=== PATIENT | female | born 1940 | race Caucasian/White ===

== ENCOUNTER 2023-08-24 13:38 | Inpatient (IN) | payer OTHER, SELFPAY ==
[2023-08-24 07:56] VITALS: BP 165/92
[2023-08-24 09:13] VITALS: BMI 32.8
--- NOTE | 2023-08-24 09:15 | ED.GENMED ---
History of Present Illness
General
Chief Complaint: Change in Mental Status
Source: patient and family
Exam Limitations: none
Time Seen by Provider: 08/24/23 08:55
Nursing documentation reviewed up to this point in time: agreed with
History of Present Illness
History of Present Illness:
Patient presents to ED for evaluation secondary to intermittent episodes of confusion, lasting seconds to minutes, as noted by her daughter who lives with the patient. Patient herself, however, has no complaints. Denies headache. Denies
dizziness. Denies recent illness. Denies recent change in medications or diet. Denies difficulty with speaking. Denies difficulty with ambulation. Denies recent illness.
Review of Systems
Review of Systems
Allergies reviewed?: Yes
All Other Systems: ROS reviewed and negative except as documented in HPI and ROS
Constitutional: Reports no symptoms
Respiratory: Reports no symptoms
Cardiac: Reports no symptoms
ABD/GI: Reports no symptoms
Musculoskeletal: Reports no symptoms
Skin: Reports no symptoms
Neurological: Reports no symptoms
Phy Exam
Physical Exam
Physical Exam:
Physical Exam
General: no apparent distress, not acutely ill. afebrile
Head: nc/at. eomi
Neck: supple. normal range of motion.
Heart: s1/s2 regular rate and rhythm, no murmur. equal radial pulses.
Lungs: no acute respiratory distress. clear bilaterally
Abdomen: normal bowel sounds. not tender.
Neuro: alert and oriented. no focal neurological deficits. normal speech. normal gait.
Skin: no rash
Psychiatric: well kept. interactive and cooperative
Extremities: no edema. no calf tenderness.
Course
Orders/Labs/Results
Orders:
Orders
08/24/23 09:11
CT Head W/o Iv Contrast Urgent
Comment:
Reason For Exam: mental status change
08/24/23 09:23
Basic Metabolic Panel Urgent
Complete Blood Count/With Diff Urgent
Magnesium Urgent
TSH Urgent
08/24/23 10:16
Urinalysis Reflex To Culture Urgent
Date Specimen was Collected: 08/24/23
Time Specimen was Collected: 10:14
Urine Microscopic Reflex Cult Urgent
Urine Culture Urgent
MATTHEW Source: U
Specimen Description:
Date Specimen was Collected: 08/24/23
Time Specimen was Collected: 10:14
08/24/23 10:31
Aspirin Chewable [Low Strength Aspirin] 324 mg PO NOW STA
Clopidogrel Bisulfate [Plavix] 300 mg PO NOW STA
08/24/23 13:00
NIH Stroke Scale As Directed
Directions: Per protocol
Neurological Checks As Directed
Frequency: Per unit guidelines
08/24/23 13:09
Admit/Transfer Patient As Directed
Co-Sign Provider:
Level of Care: Inpatient admission
Assign to:: Telemetry
Physician / Group: Hospitalist
Diagnosis: Stroke
Reason for Telemetry: CVA/TIA
Date to Stop Telemetry: 08/27/23
Time to Stop Telemetry: 11:00
Reason for Hospitalization: Stroke
Expected length of stay greater than two midnights?: Yes
ELOS- Estimated Length of Stay in days: 3
I certify the patient meets the requirements for IP care: Yes
08/24/23 13:10
Echo 2D MMode Color/Doppler Routine
Reason for Study: Thrombotic source for stroke-like sxs
08/24/23 13:11
Code Status As Directed
Resuscitation Status: Full Code
08/24/23 14:41
Acetaminophen [Tylenol/Feverall] 650 mg RECTAL Q4HPRN PRN
Acetaminophen [Tylenol] 650 mg PO Q4HPRN PRN
08/24/23 14:41
Echo 2D MMode Color/Doppler Routine
Reason for Study: stroke/TIA
Case Management Consult ONCE
Case Management Consult: Discharge Planning
Comment: stroke/tia
DIETARY CONSULT Routine
Reason for Consult: stroke/TIA
Sales And Marketing Administrator Urgent
Activity As Directed
Activity Level: Ambulate
NIH Stroke Scale As Directed
Directions: Per protocol
Comment: every shift and with any change in condition or mental status
Neurological Checks As Directed
Frequency: q4h
Additional Instructions:: q4h x 24h upon admission to the floor, then qshift & with any change in condition
and mental status
Patient Education As Directed
Type: Stroke education packet
Comment: provide to patient and family
Pneumatic Compression Sleeves As Directed
Type: Knee high
Swallow Screening CVA/TIA ONLY As Directed
Comment: NPO until swallowing screening completed
If patient FAILS swallow screening:: NPO, Speech Therapy consult, Aspiration Precautions
If patient PASSES swallow screening, diet:: Regular
Vital Signs As Directed
Frequency: Per unit guidelines
Ot Eval And Treat Routine
Pt Eval And Treat Routine
Treatment: eval gait
Activity Level: Ambulate
Speech Therapy Eval & Treat Routine
DX Deep Vein Thrombosis Video Routine
08/24/23 18:00
Atorvastatin [Lipitor] 40 mg PO QPM
08/24/23 20:00
vit C,Z-Ja-qlfit-lutein-zeaxan [PreserVision AREDS-2] 1 tablet PO BID
08/24/23 22:00
Trazodone [Desyrel] 50 mg PO HS
08/25/23 06:00
Basic Metabolic Panel IN AM
Cardiovascular Evaluation IN AM
Complete Blood Count/No Diff IN AM
Glycohemoglobin (HgbA1c) IN AM
MA [place] Routine
Reason For Exam: ? right carotid or intracranial stenosis
Recent pill cam endoscopy?: No
MA Neck With Contrast Routine
Reason For Exam: ? right carotid or intracranial stenosis
Recent pill cam endoscopy?: No
MR Brain Without Contrast Routine
Reason For Exam: Right MCA parietal infarct
Recent pill cam endoscopy?: No
08/25/23 08:00
Amlodipine [Norvasc] 2.5 mg PO DAILY
Aspirin Low Dose EC [Aspir Low (Enteric Coated)] 81 mg PO DAILY
Clopidogrel Bisulfate [Plavix] 75 mg PO DAILY
Losartan [Cozaar] 100 mg PO DAILY
Metoprolol Xl [Toprol Xl] 100 mg PO DAILY
Vitamin D3 1 tablet PO DAILY
omega-3 fatty acids 1 cap PO DAILY
omeprazole 40 mg PO DAILY
08/27/23 11:00
DC Protocol for Telemetry ONCE
Abnormal Lab Results
08/24/23 08/24/23
09: 10:16
WBC 11.3 H 10^3/uL
(4.8-10.8)
Abs Immat Gran (auto) 0.1 H 10^3/uL
(0-0.05)
Absolute Neuts (auto) 9.1 H 10^3/uL
(1.4-6.5)
Neutrophils % 80.5 H %
(42.2-75.2)
Lymphocytes % 12.4 L %
(20.5-51.1)
Glucose 110 H mg/dl
(70-99)
Calcium 10.8 H mg/dl
(8.4-10.2)
Leukocyte Esterase Rfl 1+ A
(Negative)
Urine Bacteria (Reflex) Few A
(Negative)
08/24/23 09:23
08/24/23 09:23
Vital Signs
Initial and Last Documented VS:
Initial Vital Signs
Temp Pulse Resp BP Pulse Ox
98.4 F 83 16 165/92 98
08/24/23 07:56 08/24/23 07:56 08/24/23 07:56 08/24/23 07:56 08/24/23 07:56
Last Documented Vital Signs
Temp Pulse Resp BP Pulse Ox
98.4 F 80 21 135/72 98
08/24/23 07:56 08/24/23 14:34 08/24/23 13:45 08/24/23 10:00 08/24/23 11:30
MDM/Problems Addressed
MDM/Problems Addressed:
CT head report reviewed and discussed with patient/family.
Discussed with (neurology) - recommends admission on asa/plavix for further workup
*Critical Care Note
Total Time (30-74mins, 75-104mins- exclusive of procedures): Not Applicable
ED Attending Note
-
Portions of this chart may have been created with voice recognition software.� Occasional wrong word or��sound alike� substitutions may have occurred due to the inherent limitations of voice recognition software.
Discharge Plan
Departure
Patient Disposition: Admit
Date of Disposition: 08/24/23
Time of Disposition: 10:27
Admit to: Telemetry
Presentation/result/management discussed w/ accepting MD/DO: Hospitalist
Discharge Problem:
Acute CVA (cerebrovascular accident)
Interventions
Interventions:
*Risk Screen - Suicide Last Done: 08/24/23 09:13
*General Assessment Last Done: 08/24/23 09:13
*Neglect/Abuse Screening Last Done: 08/24/23 09:13
ED- Fall Risk Assessment Last Done: 08/24/23 09:24
*ED COVID-19 Vaccine History Last Done: 08/24/23 09:13
*Nursing Disposition Last Done: 08/24/23 14:49
ED- Neurological Assessment Last Done: 08/24/23 10:31
ED- Cardiac Assessment Last Done: 08/24/23 09:24
ED Swallowing Screen Last Done: 08/24/23 09:23
Discharge Date and Time
Discharge Date/Time: 08/24/23 14:50
[2023-08-24 09:22] VITALS: BP 159/81
[2023-08-24 09:33] LABS: % Basophils 0.6 % (0-2); % Eosinophils 0.8 % (0-6); % Immature Granulocytes 0.4 % (0-0.5); % Lymphocytes 12.4 % (20.5-51.1); % Monocytes 5.3 % (1.7-9.3); % Neutrophils 80.5 % (42.2-75.2); Absolute Basophils 0.1 10^3/uL (0-0.2); Absolute Eosinophils 0.1 10^3/uL (0-0.7); Absolute Immature Granulocytes 0.1 10^3/uL (0-0.05); Absolute Lymphocytes 1.4 10^3/uL (1.2-3.4); Absolute Monocytes 0.6 10^3/uL (0.1-0.6); Absolute Neutrophils 9.1 10^3/uL (1.4-6.5); Hematocrit 37.5 % (37.0-47.0); Hemoglobin 12.5 g/dL (12.0-16.0); Mean Corp Hgb Conc. 33.3 g/dL (33.0-37.0); Mean Corpuscular Hgb 29.3 pg (27.0-31.0); Nucleated Red Blood Cells % 0 %; Platelet Count 228 10^3/uL (130-400); Red Blood Cell Count 4.26 10^6/uL (4.20-5.40); Red Cell Dist. Width 14.5 % (11.5-14.5); White Blood Cell Count 11.3 10^3/uL (4.8-10.8)
[2023-08-24 09:48] LABS: Blood Urea Nitrogen 11 mg/dl (7-17); Calcium 10.8 mg/dl (8.4-10.2); Carbon Dioxide 27 mmol/L (22-30); Chloride 103 mmol/L (98-107); Estimated Creatinine Clearance 56 ml/min; Glucose 110 mg/dl (70-99); Magnesium 2.3 mg/dl (1.6-2.3); Potassium 4.6 mmol/L (3.5-5.1); Sodium 139 mmol/L (135-145); eGFR > 60.00
[2023-08-24 10:00] VITALS: BP 135/72
[2023-08-24 10:19] LABS: TSH 0.94 uIU/ml (0.47-4.68)
[2023-08-24] MEDS: LOW STRENGTH ASPIRIN 324 MG PO (10:51)
[2023-08-24] MEDS: PLAVIX 300 MG PO (10:51)
[2023-08-24 11:18] LABS: Urine Albumin Negative (Neg - Trace); Urine Bilirubin Negative (Negative); Urine Character Clear (Clear); Urine Color Straw; Urine Glucose Negative (Negative); Urine Ketone Negative (Negative); Urine Leukocyte 1+ (Negative); Urine Nitrite Negative (Negative); Urine Occult Blood Negative (Negative); Urine Specific Gravity 1.005 (<1.030); Urine Urobilinogen Negative (Neg - 1+)
[2023-08-24 11:36] LABS: Urine Bacteria Few (Negative); Urine Squamous Cell 0-2 /LPF (Few)
[2023-08-24 11:37] LABS: Urine Red Blood Cell 0-2 /HPF (0-2); Urine White Cell 0-2 /HPF (0-5)
--- NOTE | 2023-08-24 12:58 | HPS.HSE ---
Family Physician
-
Family Physician: Ja Blankenship
Chief Complaint
-
Change of mental status
History of Present Illness
83 woman comes in with intermittent episodes of confusion, lasting seconds to minutes, (as noted by her daughter who lives with the patient). The patient herself has no complaints or symptoms. She denies headaches, dizziness, recent illness.
recent change in medications or diet, difficulty with speaking, difficulty with ambulation, or recent illness. At the time of my exam she was doing well without any complaints or changes to baseline.
Medical History
Past Medical History
Past Medical History: Reports Other
Additional Past Medical History:
Essential HTN
Gerd
Chronic kidney disease (CKD) stage G2/A1 (mildly decreased glomerular filtration rate (GFR) between 60-89 mL/min/1.73 square meter and albuminuria creatinine ratio less than 30 mg/g)
Vitamin D deficiency
Past Surgical History: Reports None
Social History
Tobacco: Non-smoker
Alcohol: None
Drug: None
Living: With Family
Family History
Family History: Not pertinent
Allergies / Home Medications
Allergies reflects when Allergies were last updated in [facility].
Home Medications with original date entered in [facility]
Allergy/Medication List:
Allergies
Allergy/AdvReac Type Severity Reaction Status Date / Time
No Known Allergies Allergy Verified 08/24/23 07:59
Home Medications
Vitamin D3 1 tab PO DAILY 08/24/23
amlodipine 2.5 mg tablet 2.5 mg PO DAILY 08/24/23
losartan 100 mg tablet 100 mg PO DAILY 08/24/23
metoprolol succinate 100 mg tablet,extended release 24 hr 100 mg PO DAILY 08/24/23
omega-3 fatty acids 1 cap PO DAILY 08/24/23
omeprazole 40 mg capsule,delayed release 40 mg PO DAILY 08/24/23
trazodone 50 mg tablet 50 mg PO HS 08/24/23
vit C 250 mg-vit E 90 mg-zinc 40 mg-copper 1 [id number] capsule (PreserVision AREDS-2) 1 tab PO BID 08/24/23
Review of Systems
-
History Source: Patient
A 12 point ROS was completed and negative except as noted: Yes
Physical Exam
Vital Signs
Vital Signs
Temp Pulse Resp BP Pulse Ox
98.4 F 81 12 135/72 98
08/24/23 07:56 08/24/23 10:16 08/24/23 10:16 08/24/23 10:00 08/24/23 10:16
Physical Exam
General: Well Developed, Well Nourished, No Apparent Distress, Comfortable, Conversant and Obese
HEENT: NormoCephalic, Moist mucous membranes, Atraumatic, Nose Appears Normal and Ears Appear Normal
Respiratory: Clear
Cardiac: S1/S2 and Regular Rhythm
GI: Soft, Non Tender and Non Distended
Musculoskeletal: No Clubbing, No Cyanosis and No Edema
Skin: Warm and Dry; No Rash or Jaundice
Neuro: Awake, Alert, AO x 3, No Motor Deficits, Nonfocal/grossly intact, Cranial Nerves Intact and No Sensory Deficits
Psych: Calm
Laboratory Results
-
08/24/23 09:23
08/24/23 09:23
Data Reviewed
-
Lab Data: Labs Reviewed by me
Impression/Plan
-
IMPRESSION:
83 woman with a stroke. CT shows:
Region of transcortical hypoattenuation in the right middle cerebral artery distribution most suspicious for an acute or subacute infarct.
PLAN:
1. Stroke. No apparent motor deficits.
CVA/TIA workup per protocol
MRI
ECG
CV US
Echo
Cardiovascular metabolic screening
Telemetry
Neuro consult
ASA/Plavix
2. Mildly elevated WBC, 11.3
No obvious infection. Likely stress reaction
Re-check in am
Full Code
VCD for DVTp
--- NOTE | 2023-08-24 13:01 | CON.NEURO4 ---
Consultation - Neurology 4
-
CONSULTING PHYSICIAN: Kaleigh Patten
REFERRING PHYSICIAN: ER
DICTATED BY: Kaleigh Patten
DATE/TIME OF REQUEST: 08/24/23
DATE/TIME OF CONSULTATION: 08/24/23
Reason for Consultation: Mild confusion, right MCA infarct seen on CT head non contrast
History of Present Illness:
Patient is an 84-year-old right-handed woman with past no history of hypertension presented to hospital because of confusion noted by her family today over the phone as well as subtle amount of confusion on 08/21.
Patient relates perhaps a small amount of lightheadedness in the past week but otherwise has not noticed any major changes in her health. She has been compliant with blood pressure medications and denies any recent headaches or head or neck trauma.
No unilateral paresthesia or weakness or speech difficulty, vision changes or gait balance difficulties this week.
Her daughter at bedside relates that there may have been a subtle amount of confusion noted in the patient on of this week, in the past 1 to 2 days daughter who lives with the patient has noticed some confusion where she seemed to not want
what was going on or made some comments not relating to issues at hand, seemed disoriented.
No history of any chest pain or cardiac issues or palpitations syncope or presyncope recently and no difficulties with exertion. Patient rather surprised to learn that CT head noncontrast supported a likely ischemic stroke recently.
Past Medical History: Hypertension, GERD, migraines without aura years ago
Surgical History: Ankle surgery
Family History: Non-contributory
Social History: Lives with her daughter, has 3 adult children, no tobacco, no alcohol
Review of Symptoms:
Patient denies any fever, headache, chest pain, shortness of breath, GI or symptoms.
Physical Exam:
Elderly woman appears her stated age or younger pleasant cooperative no distress, no signs of head or neck trauma eyes are clear oropharynx is clear neck supple no masses, heart rate regular breathing unlabored abdomen soft nontender no lower
extremity edema
Neurologic Examination:
The patient is awake, alert and oriented x 3. She is able to follow commands and answer questions appropriately. There is no aphasia or dysarthria. No signs of hemineglect. Obeys multi step commands. On cranial nerve assessment, pupils are 3 mm
bilateral, round and reactive to light and accommodation. Visual davis are full. Extraocular movements are intact. Facial sensations are intact and bilaterally symmetrical, there is no facial asymmetry. Hearing is intact bilaterally to normal
conversation volume. Tongue palate and uvula are midline. Sternocleidomastoid strengths are full bilaterally. Motor strengths are 5/5 bilateral upper and lower extremities on medical research [place] scale. There is no drift or involuntary movement
noted. Deep tendon reflexes are 2+ bilateral upper and lower extremities and Babinski is absent bilaterally. Sensations of pain, touch, temperature and vibration are intact and bilaterally symmetrical. There was no extinction noted on double
simultaneous stimulation. Coordination is intact by finger to nose bilaterally.
Neuro Imaging: CT head noncontrast with an acute to early subacute ischemic infarct involving the right parietal lobe, no hemorrhage is seen no masses
Impressions
1. Right MCA ischemic stroke most likely occurring within the past several days resulting in some mild confusion. Etiology is most likely atheroembolic versus cardioembolic given cortical based infarct. Main risk factor is hypertension
2. Chronic hypertension, treated
Patient has the following risk factors for their symptoms: Hypertension, age
IV Tenecteplase/IAT candidacy: Outside the time window for tenecteplase which is also contraindicated given clearly developed ischemic stroke on CT head, no signs of an acute large vessel occlusion would not be an IAT candidate.
Recommendations:
1. Load aspirin and clopidogrel for DAPT therapy
2. Goal normotension
3. Neurologic checks and NIH stroke scale
4. Cardiac telemetry
5. Check lipid panel and hemoglobin A1c
6. Would benefit from staying until Saturday for transthoracic echocardiogram given a cortical most likely embolic (atheroembolic vs cardioembolic stroke)
7. PT/OT speech therapy evaluations
8. Stroke educational materials
Will follow
Discussed patient care with: ER, patient and her daughter
[2023-08-24 15:02] VITALS: BP 156/83; BMI 31.9
--- NOTE | 2023-08-24 16:04 | PTOTSP ---
ST Acute Care Evaluation
Pt appears to have functional oropharyngeal parameters for safe ingestion of all solids and liquids. MOLD HOLDER made recommendation to try pills whole in applesauce/puree to see if this aids her swallowing.
Pt and pt's granddaughters decline any overt change in speech, language, or communication at this time. However, given acute R MCA CVA, pt would benefit from a cognitive linguistic screening/evaluation to ensure there are no new deficits that would
warrant MOLD HOLDER tx.
Recommendations:
- Continue with regular solids, thin liquids, meds whole in puree as tolerated.
- General aspiration precautions.
- MOLD HOLDER to complete cognitive linguistic evaluation as able.
[2023-08-24] MEDS: LIPITOR 40 MG PO (18:03)
[2023-08-24 19:19] VITALS: BP 110/58
[2023-08-24] MEDS: DESYREL 50 MG PO (21:06)
[2023-08-24] MEDS: OCUVITE SOFTGEL 1 CAP PO (21:06)
[2023-08-24 23:05] VITALS: BP 129/65
[2023-08-25] VITALS (9 sets, daily range): BP systolic 115–163; BP diastolic 65–88; PULSE 72; O2SAT 97
[2023-08-25 05:34] LABS: Mean Corp Hgb Conc. 33.3 g/dL (33.0-37.0); Mean Corpuscular Hgb 29.7 pg (27.0-31.0); Mean Corpuscular Volume 89.1 fL (81.0-99.0); Mean Platelet Volume 10.2 fL (7.4-10.4); Platelet Count 203 10^3/uL (130-400); Red Blood Cell Count 4.04 10^6/uL (4.20-5.40); Red Cell Dist. Width 14.5 % (11.5-14.5); White Blood Cell Count 8.6 10^3/uL (4.8-10.8)
[2023-08-25 05:54] LABS: Blood Urea Nitrogen 14 mg/dl (7-17); Calcium 10.6 mg/dl (8.4-10.2); Carbon Dioxide 27 mmol/L (22-30); Chloride 106 mmol/L (98-107); Estimated Creatinine Clearance 56 ml/min; Glucose 103 mg/dl (70-99); HDL Cholesterol 89 mg/dl; LDL Cholesterol, Calculated 107 mg/dl; Potassium 4.4 mmol/L (3.5-5.1); Sodium 139 mmol/L (135-145); Total Cholesterol 215 mg/dl (50-199); Triglyceride 98 mg/dl (10-149); Very Low Density Lipoprotein 19 mg/dl (0-30); eGFR > 60.00
--- NOTE | 2023-08-25 08:21 | W.PN.NEURO.1 ---
Today's Communication / Plan
-
-Aspirin and clopidogrel therapy for total of 21 days then aspirin monotherapy
-Would recommend against using omeprazole while on clopidogrel as there is a theoretical interaction between clopidogrel and omeprazole which although is of low significance I would rather avoid for the sake of caution
-Atorvastatin 40 mg once daily pursue LDL goal less than 70
-Monitor on cardiac telemetry and check transthoracic echocardiogram
-Low threshold for outpatient cardiac monitoring after discharge
-Neurologic checks NIH stroke scale
-Goal normotension
Neuro Assessment/Plan
Assessment
83-year-old woman presented to hospital given episodes of subtle confusion noted by her family. CT head demonstrated a recent right MCA parietal lobe ischemic stroke.
Brain MRI shows acute ischemic stroke in the right MCA territory without any other areas of ischemic stroke seen
Neck MRI does not show any significant carotid stenosis.
MRA of the head shows asymptomatic left MCA M1 segment artery stenosis representing intracranial atherosclerosis
Main risk factors are age hypertension hyperlipidemia
Stroke is embolic appearing could be atheroembolic due to atherosclerotic disease but there is no findings of significant carotid artery stenosis th.at would be intervenable. Cardioembolic stroke would also be important consideration. Occult
atrial fibrillation will have to remain an important consideration moving forward
Subjective/Objective
Subjective Data
Date of Service: August 25, 2023
No acute events, patient feeling well, no complaints, discussed MRI and Echo testing is pending
Objective Data
Vital Signs
Temp Pulse Resp BP Pulse Ox
97.6 F 69 16 129/74 97
08/25/23 03:02 08/25/23 03:02 08/25/23 03:02 08/25/23 03:02 08/25/23 03:02
Lab Results
08/25/23 05:10
08/25/23 05:10
Sodium 139 mmol/L (135-145) 08/25/23 05:10
Potassium 4.4 mmol/L (3.5-5.1) 08/25/23 05:10
BUN 14 mg/dl (7-17) 08/25/23 05:10
Glucose 103 mg/dl (70-99) H 08/25/23 05:10
Calcium 10.6 mg/dl (8.4-10.2) H 08/25/23 05:10
LDL Cholesterol, Calc 107 mg/dl 08/25/23 05:10
Patient Allergies
No Known Allergies Allergy (Verified 08/24/23 07:59)
LDL Level: >70, statin ordered
Review of Systems
-
History Source: Patient
All other systems: Reviewed and negative
Constitutional: No Symptoms
EENT: No Symptoms Reported and Decreased Vision
Respiratory: No Symptoms
Cardiac: No Symptoms
Abdomen/GI: No Symptoms
Genitourinary: No Symptoms
Musculoskeletal: No Symptoms
Skin: No Symptoms
Neuro: No Symptoms
Endocrine: No Symptoms
Hematologic / Lymphatic: No Symptoms
Allergy / Immunology: No Symptoms
Physical Exam
-
General: No Apparent Distress
Eyes: No Ptosis
HEENT: Normocephalic
Neck: No Bruits Bilaterally
Respiratory: Clear to Auscultation
Cardiac: Regular Rhythm
GI: Normal Bowel Sounds
Skin: Unremarkable
Extremities: No Clubbing
Psych: Unremarkable
Extended Neurological Exam
Mood & Affect: Mood Unremarkable and Affect Unremarkable
Attention Span & Concentration: Awake, Alert and Interactive
Memory: Unremarkable
Tremor: Hand Tremor Absent
Involuntary Movement: None
Speech: Quality Unremarkable and Quantity Unremarkable; Negative Expressive Aphasia, Receptive Aphasia or Dysarthric
Cranial Nerve II: Left Eye: Pupillary Reactivity Unremarkable, Pupillary Size Unremarkable and Visual Lang Intact
Cranial Nerve II: Right Eye: Pupillary Reactivity Unremarkable, Pupillary Size Unremarkable and Visual Lang Intact
Cranial Nerves III, IV, : Extraocular Movement: Extraocular Movement Full in all Directions
Cranial Nerve VII: Facial Symmetry: Normal Facial Symmetry
Muscle Strength, Overall: Full Throughout
Pronator Drift: No Drift in Upper Extremities
Deep Tendon Reflexes: Trace Throughout
Coordination: Ibjazp-ziau-hmlult Testing Unremarkable
Babinski Sign: Absent Bilaterally
Data Reviewed
-
CT Head: Report Reviewed and Image Reviewed
MRI Head: Image Reviewed
MRA Head: Report Reviewed and Image Reviewed
MRA Neck: Report Reviewed and Image Reviewed
Echocardiogram: Ordered and Pending
[2023-08-25] MEDS: TOPROL XL 100 MG PO (08:35)
[2023-08-25] MEDS: PLAVIX 75 MG PO (08:35)
[2023-08-25] MEDS: COZAAR 100 MG PO (08:36)
[2023-08-25] MEDS: NORVASC 2.5 MG PO (08:36)
[2023-08-25] MEDS: OCUVITE SOFTGEL 1 CAP PO ×2 (08:36→20:17)
[2023-08-25] MEDS: VITAMIN D3 (cholecalciferol) 50 MCG PO (08:36)
[2023-08-25] MEDS: PROTONIX 40 MG PO (08:36)
[2023-08-25] MEDS: ASPIR LOW (ENTERIC COATED) 81 MG PO (08:37)
[2023-08-25 10:37] LABS: Glycohemoglobin (HgbA1c) 5.4 % (4.0-5.6)
--- NOTE | 2023-08-25 10:56 | W.PN.HOSP.TC ---
Today's Communication/Plan
-
See outlined plan
Assessment / Plan
Assessment / Plan
Assessment:
Acute R MCA CVA (ischemic)
- CT: Region of transcortical hypoattenuation in the right middle cerebral artery distribution most suspicious for an acute or subacute infarct.
- MRI: Acute or subacute nonhemorrhagic infarct in the right MCA distribution.
- MRA studies: No MRA evidence for high-grade stenosis or occlusion of the right middle cerebral artery. Moderate focal stenosis of the left M1 segment. Carotids are patent.
- Echo Saturday
- continue ASA/Plavix
- continue Statin, LDL 107
- A1c: 5.4%
- PT/OT/ST
- follow Neuro recs
Essential HTN
- goal is normotension
- continue Norvasc/Losartan/Toprol XL
GERD on PPI
CKD stage 2
DVT ppx: SCDs
Code: Full
Anticipated Discharge: Within 24 hours
Subjective/Interval History
-
Date of Service: August 25, 2023
no new complaints
Objective Data
-
Labs:
Laboratory Results
08/25/23
05:10
WBC 8.6
Hgb 12.0
Hct 36.0 L
Plt Count 203
Sodium 139
Potassium 4.4
Chloride 106
Carbon Dioxide 27
BUN 14
Creatinine 0.7
Glucose 103 H
Calcium 10.6 H
Vital Signs:
Vital Signs
Temp Pulse Resp BP Pulse Ox
97.1 F 97 16 144/88 94
08/25/23 08:28 08/25/23 08:28 08/25/23 08:28 08/25/23 08:28 08/25/23 08:28
I&O
08/24/23 08/25/23 08/26/23
06:59 06:59 06:59
Intake Total 960 / 960
Balance 960 / 960
Physical Exam
-
General: No Apparent Distress
HEENT: Normocephalic and Atraumatic
Respiratory: Negative Wheezes
Cardiac: Regular Rhythm and S1/S2
GI: Soft and Nontender
Musculoskeletal: No Edema
Neuro: AO x 3
Hematologic / Lymphatic: No Lymphadenopathy
Psych: Calm
Data Reviewed
-
Total Time Spent with Patient (in minutes): 41
Labs: Labs Reviewed by me
--- NOTE | 2023-08-25 13:28 | CM ---
Addendum entered by Ana María Downing 08/25/23 13:39:
Also AD/POA paperwork provided to her.
Original Note:
CM following re: d/c planning.
CM met with pt at bedside to complete IA.
Pt states she resides with daughter and granddaughter.
She states she is independent with mobility and ADLs.
She does have a walker and cane from previous knee/hip surgeries.
Pt states she does not drive, and daughter works FT so transportation can be a barrier at times.
PCP is Dr. Blankenship and [facility] in [place].
Per therapy, recs for acute rehab. PMR consult requested.
ECHO planned for tomorrow.
CM will continue to follow.
Re: transport barrier, CM provided her with [employer] resource, contact info, and application.
She verbalized understanding and plans to proceed with applying.
[2023-08-25] MEDS: LIPITOR 40 MG PO (17:33)
[2023-08-25] MEDS: DESYREL 50 MG PO (22:05)
[2023-08-26 03:42] VITALS: BP 141/87
--- NOTE | 2023-08-26 06:25 | W.PN.NEURO.1 ---
Today's Communication / Plan
-
-TTE today
-Would definitely pursue cardiac monitoring in outpatient setting, reasonable to start with short term Holter or Zio patch but if negative would pursue implanted LINQ monitor given embolic stroke without significant atherosclerosis on right MCA or
right carotid artires
-DAPT therapy aspirin and clopidogrel for 21 days, avoid Omeprazole given theoretical interaction with Clopidogrel. End date of Clopidogrel 09/12
-Neuro checks and NIH scales
-Recommended to patient she not drive as a precaution until seen in neurology follow up given right MCA stroke can produce subtle cognitive issues not immediately apparent
-Atorvastatin 40 mg daily
-PT/OT evaluations
Will sign off call with questions and concerns
Neuro Assessment/Plan
Assessment
83-year-old woman presented to hospital given episodes of subtle confusion noted by her family. CT head demonstrated a recent right MCA parietal lobe ischemic stroke.
Brain MRI shows acute ischemic stroke in the right MCA territory without any other areas of ischemic stroke seen
Neck MRI does not show any significant carotid stenosis.
MRA of the head shows asymptomatic left MCA M1 segment artery stenosis representing intracranial atherosclerosis
Main risk factors are age hypertension hyperlipidemia
Stroke is embolic appearing could be atheroembolic due to atherosclerotic disease but there is no findings of significant carotid artery stenosis th.at would be intervenable. Cardioembolic stroke would also be important consideration. Occult
atrial fibrillation will have to remain an important consideration moving forward
Subjective/Objective
Subjective Data
Date of Service: August 26, 2023
No acute events, feeling okay currently, no new symptoms, a little bit of confusion, no headache
Objective Data
Vital Signs
Temp Pulse Resp BP Pulse Ox
97.5 F 77 16 141/87 95
08/26/23 03:42 08/26/23 03:42 08/26/23 03:42 08/26/23 03:42 08/26/23 03:42
Lab Results
08/25/23 05:10
08/25/23 05:10
Sodium 139 mmol/L (135-145) 08/25/23 05:10
Potassium 4.4 mmol/L (3.5-5.1) 08/25/23 05:10
BUN 14 mg/dl (7-17) 08/25/23 05:10
Glucose 103 mg/dl (70-99) H 08/25/23 05:10
Calcium 10.6 mg/dl (8.4-10.2) H 08/25/23 05:10
LDL Cholesterol, Calc 107 mg/dl 08/25/23 05:10
Patient Allergies
No Known Allergies Allergy (Verified 08/24/23 07:59)
LDL Level: >70, statin ordered
Review of Systems
-
History Source: Patient
All other systems: Reviewed and negative
Constitutional: No Symptoms
EENT: No Symptoms Reported
Respiratory: No Symptoms
Cardiac: No Symptoms
Abdomen/GI: No Symptoms
Genitourinary: No Symptoms
Musculoskeletal: No Symptoms
Skin: No Symptoms
Neuro: See existing Neuro Note
Endocrine: No Symptoms
Hematologic / Lymphatic: No Symptoms
Allergy / Immunology: No Symptoms
Physical Exam
-
General: No Apparent Distress
Eyes: No Ptosis
HEENT: Normocephalic
Neck: No Bruits Bilaterally
Respiratory: Clear to Auscultation
Cardiac: Regular Rhythm
GI: Normal Bowel Sounds
Skin: Unremarkable
Extremities: No Clubbing
Psych: Unremarkable
Extended Neurological Exam
Mood & Affect: Mood Unremarkable and Affect Unremarkable
Attention Span & Concentration: Awake, Alert, Interactive and No Difficulty with 2 Step Request
Memory: Unremarkable
Tremor: Hand Tremor Absent
Involuntary Movement: None
Speech: Quality Unremarkable and Quantity Unremarkable; Negative Expressive Aphasia or Receptive Aphasia
Cranial Nerve II: Left Eye: Pupillary Reactivity Unremarkable and Pupillary Size Unremarkable
Cranial Nerve II: Right Eye: Pupillary Reactivity Unremarkable and Pupillary Size Unremarkable
Cranial Nerves III, IV, : Extraocular Movement: Extraocular Movement Full in all Directions
Cranial Nerve VII: Facial Symmetry: Normal Facial Symmetry
Muscle Strength, Overall: Full Throughout
Muscle Bulk & Tone: Bulk Unremarkable
Pronator Drift: No Drift in Upper Extremities
Data Reviewed
-
MRI Head: Report Reviewed and Image Reviewed
MRA Head: Report Reviewed and Image Reviewed
MRA Neck: Report Reviewed and Image Reviewed
[2023-08-26 07:10] VITALS: BP 145/82
--- NOTE | 2023-08-26 08:36 | W.PN.HOSP.TC ---
Addendum entered and electronically signed by Martínez Montenegro MD 08/26/23 13:58:
More than 30 minutes spent in discharge including
Final examination of the patient
Summarizing hospital stay
Instructions for continuing care to all relevant caregivers
Preparation of discharge records, prescriptions, and referral forms
Total time spent (in minutes):41
Original Note:
Today's Communication/Plan
-
start UTI tx
Echo to complete in hospital stroke workup
Omalley eval pending
Assessment / Plan
Assessment / Plan
Assessment:
Acute R MCA CVA (ischemic)
- CT: Region of transcortical hypoattenuation in the right middle cerebral artery distribution most suspicious for an acute or subacute infarct.
- MRI: Acute or subacute nonhemorrhagic infarct in the right MCA distribution.
- MRA studies: No MRA evidence for high-grade stenosis or occlusion of the right middle cerebral artery. Moderate focal stenosis of the left M1 segment. Carotids are patent.
- Echo: pending today
- continue ASA/Plavix x 3 weeks until 09/12, then ASA.
- continue Statin, LDL 107
- A1c: 5.4%
- PT/OT/ST
- follow Neuro recs
Strep UTI
- start 3 days Rocephin course
Essential HTN
- goal is normotension
- continue Norvasc/Losartan/Toprol XL
GERD
- hold Omeprazole but can use pantoprazole
CKD stage 2
DVT ppx: SCDs
Code: Full
Anticipated Discharge: 24 - 48 hours
Subjective/Interval History
-
Date of Service: August 26, 2023
no UTI sx despite positive culture
no new complaints
Objective Data
-
Vital Signs:
Vital Signs
Temp Pulse Resp BP Pulse Ox
97.7 F 80 20 145/82 95
08/26/23 07:10 08/26/23 07:10 08/26/23 07:10 08/26/23 07:10 08/26/23 07:10
I&O
08/25/23 08/26/23 08/27/23
06:59 06:59 06:59
Intake Total 960 / 960 580 / 580
Balance 960 / 960 580 / 580
Physical Exam
-
General: No Apparent Distress
HEENT: Normocephalic and Atraumatic
Respiratory: Negative Wheezes
Cardiac: Regular Rhythm and S1/S2
GI: Soft
Musculoskeletal: No Edema
Neuro: AO x 3
Hematologic / Lymphatic: No Lymphadenopathy
Psych: Calm
Data Reviewed
-
Total Time Spent with Patient (in minutes): 41
Labs: Labs Reviewed by me
[2023-08-26] MEDS: PLAVIX 75 MG PO (08:37)
[2023-08-26] MEDS: PROTONIX 40 MG PO (08:37)
[2023-08-26] MEDS: OCUVITE SOFTGEL 1 CAP PO (08:37)
[2023-08-26] MEDS: ASPIR LOW (ENTERIC COATED) 81 MG PO (08:37)
[2023-08-26] MEDS: COZAAR 100 MG PO (08:38)
[2023-08-26] MEDS: VITAMIN D3 (cholecalciferol) 50 MCG PO (08:38)
[2023-08-26] MEDS: NORVASC 2.5 MG PO (08:38)
[2023-08-26] MEDS: TOPROL XL 100 MG PO (08:38)
--- NOTE | 2023-08-26 09:43 | PTOTSP ---
Acute Care Evaluation
As documented previously, pt presents with functional oral, pharyngeal, and esophageal parameters. No skilled dysphagia services necessary. Pt presents with mild cognitive linguistic impairment characterized by deficits in expressive naming, visual
organization, mental organization/manipulation, and auditory recall. Pt also appears (and confirms) to have some difficulty hearing - pt would benefit from a hearing screening.
Recommendations:
- Continue with regular solids, thin liquids, meds as tolerated. No skilled dysphagia needs at this time.
- Pt should continue to receive cognitive linguistic tx to address identified deficits.
- Pt should continue to receive cognitive linguistic tx upon d/c at the acute rehab level of care.
- Pt should get a hearing screening.
[2023-08-26] MEDS: STERILE WATER FOR INJECTION 10 ML IV (10:23)
[2023-08-26] MEDS: ROCEPHIN 1000 MG IV (10:23)
[2023-08-26 11:50] VITALS: BP 136/74
--- NOTE | 2023-08-26 13:58 | W.DS.TRANS ---
DC Summary - [employer]
-
Discharge Instructions:
Discharge Diagnosis/Procedures Acute R MCA CVA (ischemic)
Diet Low Cholesterol
Activity As tolerated
Other Services OT,PT
Instructions:
Stand-Alone Forms:
Changes to Home Medications: No
Discharge Medications:
DC Medications w/original date entered in [employer]
Vitamin D3 1 tab PO DAILY 08/24/23
amlodipine 2.5 mg tablet 2.5 mg PO DAILY 08/24/23
losartan 100 mg tablet 100 mg PO DAILY 08/24/23
metoprolol succinate 100 mg tablet,extended release 24 hr 100 mg PO DAILY 08/24/23
omega-3 fatty acids 1 cap PO DAILY 08/24/23
trazodone 50 mg tablet 50 mg PO HS 08/24/23
vit C 250 mg-vit E 90 mg-zinc 40 mg-copper 1 ct-[id number]-lbcynf capsule (PreserVision AREDS-2) 1 tab PO BID 08/24/23
aspirin 81 mg tablet,delayed release 81 mg PO DAILY #100 tabs 08/26/23
atorvastatin 40 mg tablet 40 mg PO QPM #30 tabs 08/26/23
cephalexin 500 mg capsule 500 mg PO BID #8 caps 08/26/23
clopidogrel 75 mg tablet 75 mg PO DAILY #21 tabs 08/26/23
pantoprazole 40 mg tablet,delayed release 40 mg PO DAILY #21 tabs 08/26/23
Home Medication Changes
Pending Results: No
Total time spent discharging patient (in min): 41
--- NOTE | 2023-08-26 15:01 | CM ---
Addendum entered by Marietta Nava 08/26/23 15:05:
PCP: Dr. Rojas
Pharmacy: [facility]
Original Note:
Shruthi is ready for discharge today.
CM met with Shruthi who is ready for discharge to home. She was initially recommended for acute rehab, however since that time she has improved in her capabilities and is going to return home with outpatient therapy.
Her daughter works, so transportation can sometimes be a problem.
Prior CM provided her with [facility] resource, contact info, and application.
Plan: Discharge to home with outpatient PT.
[2023-08-26 16:08] VITALS: BP 130/75
[2023-08-26] MEDS: LIPITOR 40 MG PO (17:03)
--- NOTE | 2023-08-28 09:12 | VNURNOTE ---
Home Health Liaison was contacted by [facility] intake regarding patient's daughter call requesting [facility].
Home Health Liaison spoke with patient's daughter Henny at 0900 to discuss [facility] therapy, visits, schedule and homebound status. Vee is agreeable and understands that visits at home will be 2-3 x per week to assess and teach strengthening and balance.
Vee is aware that [facility] will contact them for start of care in 1-2 days.
[facility] referral completed in [facility].
== END 2023-08-26 17:55 | disposition home or self-care (01) | DRG 65 ==
LOC: 4 EAST ACU 13:38
PROVIDERS: ADMITTING PHYSICIAN Internal Medicine; ATTENDING PHYSICIAN Internal Medicine; EMERGENCY PHYSICIAN Emergency Medicine; FAMILY PHYSICIAN Internal Medicine; OTHER PHYSICIAN Student in an Organized Health Care Education/Training Program
DX: I63.9 Cerebral infarction, unspecified (principal); N39.0 Urinary tract infection, site not specified; I12.9 Hypertensive chronic kidney disease with stage 1 through stage 4 chronic kidney disease, or unspecified chronic kidney disease; N18.2 Chronic kidney disease, stage 2 (mild); B95.5 Unspecified streptococcus as the cause of diseases classified elsewhere; D72.829 Elevated white blood cell count, unspecified; E55.9 Vitamin D deficiency, unspecified; K21.9 Gastro-esophageal reflux disease without esophagitis; Z79.899 Other long term (current) drug therapy
CPT/HCPCS: 70450; 70544; 70548; 70551; 80048; 80061; 81003; 81015; 83036; 83735; 84443; 85025; 85027; 87077; 87086; 87147; 92523; 92610; 93306; 97116; 97129; 97162; 97167; 97530; 97535; 99284

== ENCOUNTER → 2024-01-31 08:29 | Outpatient (REF) | payer OTHER, SELFPAY | LOC: HWRAD 08:29 | PROVIDERS: ATTENDING PHYSICIAN Internal Medicine | DX: R10.9 Unspecified abdominal pain (principal); R31.0 Gross hematuria; R82.998 Other abnormal findings in urine | CPT/HCPCS: 74018 ==

== ENCOUNTER → 2024-06-29 07:33 | Outpatient (REF) | payer OTHER, SELFPAY | LOC: HWRAD 07:33 | PROVIDERS: ATTENDING PHYSICIAN Internal Medicine | DX: Z13.820 Encounter for screening for osteoporosis (principal); R74.8 Abnormal levels of other serum enzymes; E83.52 Hypercalcemia; E21.3 Hyperparathyroidism, unspecified; Z78.0 Asymptomatic menopausal state | CPT/HCPCS: 77080 ==

== ENCOUNTER → 2024-08-18 08:38 | Outpatient (REF) | payer OTHER, SELFPAY | LOC: RAD 08:38 | PROVIDERS: ATTENDING PHYSICIAN Nurse Practitioner Family; FAMILY PHYSICIAN Internal Medicine | DX: E83.52 Hypercalcemia (principal); E34.9 Endocrine disorder, unspecified | CPT/HCPCS: 76536; 78071; A9500 ==

== ENCOUNTER 2024-10-20 06:14 | Day surgery (SDC) | payer OTHER, SELFPAY ==
[2024-10-13 08:59] LABS: Hematocrit 38.1 % (37.0-47.0); Hemoglobin 12.4 g/dL (12.0-16.0); Mean Corp Hgb Conc. 32.5 g/dL (33.0-37.0); Mean Corpuscular Volume 89.2 fL (81.0-99.0); Platelet Count 243 10^3/uL (130-400); Red Cell Dist. Width 14.4 % (11.5-14.5)
[2024-10-13 09:05] LABS: INR 0.96; PT 13.1 Sec (11.4-14.6)
[2024-10-13 09:06] LABS: APTT 26.9 Sec (23.4-35.0)
[2024-10-13 10:11] LABS: ALT (SGPT) 28 U/L (0-35); AST (SGOT) 23 U/L (14-36); Albumin 4.6 g/dl (3.5-5.0); Alkaline Phosphatase 170 U/L (38-126); Blood Urea Nitrogen 18 mg/dl (7-17); Calcium 11.1 mg/dl (8.4-10.2); Carbon Dioxide 26 mmol/L (22-30); Chloride 106 mmol/L (98-107); Glucose 102 mg/dl (70-99); Potassium 4.5 mmol/L (3.5-5.1); Sodium 139 mmol/L (135-145); Total Protein 7.1 g/dl (6.3-8.2); eGFR > 60.00
[2024-10-13 14:10] VITALS: BMI 30.7
[2024-10-20] VITALS (9 sets, daily range): BP systolic 113–148; BP diastolic 72–90; BMI 30.7
[2024-10-20] MEDS: NEURONTIN 300 MG PO (11:52)
[2024-10-20] MEDS: HEPARIN 5000 UNITS SC (11:52)
[2024-10-20] MEDS: TYLENOL 1000 MG PO (11:52)
[2024-10-20] MEDS: NORMOSOL-R/PLASMALYTE-A 1000 IV (12:03)
[2024-10-20 13:15] LABS: Turbo PTH 3992 pg/ml (13.6-85.8)
[2024-10-20 13:53] LABS: Turbo PTH 110.5 pg/ml (13.6-85.8)
--- NOTE | 2024-10-20 14:03 | OR.RPT ---
Operative Report
Operative Report
Date of Operation: October 20, 2024
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
Postoperative Diagnosis: Same
Surgeon: Cornell Urbina M.D.
Operation: Minimally Invasive Left Superior Parathyroidectomy - 44106
Anesthesia: GET
Estimated Blood Loss: 3 cc
Drains: None
Specimen: Left Superior neck nodule, rule out parathyroid adenoma
Complications: None
Procedure:
The patient was taken to the operating room and placed in the usual supine position. After adequate general endotracheal anesthesia was established, the patient's neck was extended, prepped, and draped in the typical sterile fashion. A 4 cm
transcervical incision was made two fingerbreadths above the sternal notch. The skin incision was made with the #15 blade, and this was taken through the skin into the subcutaneous tissue. The underlying platysma muscle was divided, and subplatysmal
flaps were created superiorly to the thyroid cartilage and inferiorly to the sternal notch. Strap muscles were identified and at the midline.
Attention was turned to the patient's left side of the neck. The left thyroid lobe was mobilized medially. During this process, the left recurrent laryngeal nerve was identified and preserved throughout the surgery. The left upper neck nodule was
identified and noted to be enlarged, excised, and sent to the pathology department, which showed a hypercellular parathyroid gland, weighing 779 mg. The normal-appearing right lower parathyroid gland was identified and preserved. The intraoperative
PTH levels decreased from 3,999 pg/ml to 110.5 pg/ml within 15 minutes.
After obtaining adequate hemostasis, the strap muscles were reapproximated with #3-0 Vicryl in a running fashion. The platysma muscle was reapproximated with #3-0 Vicryl in an interrupted fashion, and the skin was approximated with #4-0 Monocryl in
a running subcuticular fashion. The Steri-Strips and sterile dressings were placed. The patient tolerated the procedure well. The final instrument, needle, and sponge counts were correct. The patient was extubated and transferred to the PACU.
== END 2024-10-20 16:30 | disposition home or self-care (01) ==
LOC: SDS 06:14
PROVIDERS: ATTENDING PHYSICIAN Surgery; FAMILY PHYSICIAN Internal Medicine
DX: E21.0 Primary hyperparathyroidism (principal); D35.1 Benign neoplasm of parathyroid gland
CPT/HCPCS: 60500; 36415; 80053; 83970; 85027; 85610; 85730; 88305; 88331